=== PATIENT | female | born 1955 | race Caucasian/White ===

== ENCOUNTER → 2017-04-07 | Outpatient (CLI) | payer MEDICAID ==
[2014-04-07 17:49] VITALS: BP 136/81
[2017-04-07 10:46] LABS: CREATININE,URINE 125.86 mg/dL (29-226); MICROALBUMIN,URINE 7.5 mg/L
[2017-04-07 10:48] LABS: BASOPHILS # (AUTO) 0.1 X10^3/uL (0.0-0.1); BASOPHILS % (AUTO) 0.8 % (0.2-1.0); EOSINOPHILS # (AUTO) 0.2 x10^3/uL (0.0-0.2); EOSINOPHILS % (AUTO) 2.7 % (0.9-2.9); HEMATOCRIT 43.2 % (36.0-47.0); HEMOGLOBIN 14.5 g/dL (12.0-16.0); LYMPHOCYTES # (AUTO) 2.3 X10^3/uL (1.3-2.9); MEAN CORPUSCULAR HEMOGLOBIN 29.5 pg (27.0-34.0); MEAN CORPUSCULAR HGB CONC 33.5 g/dL (33.0-35.0); MEAN CORPUSCULAR VOLUME 88.1 fL (80.0-100.0); MEAN PLATELET VOLUME 9.5 fL (7.4-11.0); MONOCYTES # (AUTO) 0.6 x10^3/uL (0.3-0.8); MONOCYTES % (AUTO) 6.3 % (0.0-13.0); NEUTROPHILS # (AUTO) 5.7 x10^3/uL (2.2-4.8); NEUTROPHILS % (AUTO) 64.2 % (42.0-75.0); PLATELET COUNT 137 X10^3/uL (150.0-450.0); RED CELL DISTRIBUTION WIDTH 12.8 % (11.6-16.5); WHITE BLOOD COUNT 8.8 X10^3/uL (3.6-10.0)
[2017-04-07 10:50] LABS: HEMOGLOBIN A1C 10.2 % (4.5-6.2)
[2017-04-07 11:20] LABS: ERYTHROCYTE SEDIMENTATION RATE 15 MM/HOUR (0-20)
[2017-04-07 11:45] LABS: ALANINE AMINOTRANSFERASE 27 Units/L (12-78); ALBUMIN 3.3 g/dL (3.4-5.0); ALKALINE PHOSPHATASE 75 Units/L (46-116); ASPARTATE AMINO TRANSFERASE 17 Units/L (15-37); BLOOD UREA NITROGEN 13 mg/dL (7-18); CHLORIDE 103 mmol/L (98-107); CHOL/HDL RATIO 6.8 (0.0-5.0); CHOLESTEROL 149 mg/dL (0-200); COR CA(FOR HYPOALB) 9.6 mg/dL (8.5-10.1); COR NA(FOR HYPERGLY) 142 mmol/L (136-145); GLUCOSE 226 mg/dL (65-99); HDL CHOLESTEROL 22 mg/dL (40-60); SODIUM 139 mmol/L (136-145); TOTAL PROTEIN 7.8 g/dL (6.4-8.2); TRIGLYCERIDES 143 mg/dL (0-150); eGFR BLACK RACES > 60 (>60); eGFR NON BLACK RACES > 60 (>60)
--- NOTE | 2017-04-07 12:01 | RAD ---
HISTORY: Left knee pain. Complete two view series of the left knee joint. Findings: There is no evidence for acute fracture or dislocation. The medial and lateral tibiofemor al compartments demonstrate moderate to severe joint space narrowing and osteophyte formation; most severe in the medial knee compartment. The findings are compatible with moderate to severe degenerat chaim joint disease. The lateral radiograph demonstrates a very small suprapatellar joint effusion. Patellofemoral compartment also shows moderate to severe DJD with chondromalacia patella. There is m ild soft tissue swelling about the knee joint without underlying bony injury or fracture seen. No ag gressive / destructive lytic bony lesions are seen. IMPRESSION: Moderate to severe left knee joint tricompartmental osteoarthritis, most severe medially, with advan john central chondromalacia patella. No evidence for an acute fracture, subluxation, or lytic bony le luis fernando. No significant knee joint effusion is observed. Reported By:
--- NOTE | 2017-04-07 12:02 | RAD ---
HISTORY: Right knee pain. Complete two view series of the right knee joint. Findings: There is no evidence for acute fracture or dislocation. The medial and lateral tibiofemor al compartments demonstrate moderate to severe joint space narrowing and osteophyte formation; most severe in the medial knee compartment. The findings are compatible with moderate to severe degenerat chaim joint disease. The lateral radiograph demonstrates a small right knee suprapatellar joint effus ion. Patellofemoral compartment also shows moderate to severe DJD with chondromalacia patella. Ther e is mild soft tissue swelling about the knee joint without underlying bony injury or fracture seen. No aggressive / destructive lytic bony lesions are seen. IMPRESSION: Moderate to severe right knee joint tricompartmental osteoarthritis, most severe medially, with adva nced central chondromalacia patella. No evidence for an acute fracture, subluxation, or lytic bony l esion. Small right knee joint effusion is also observed. Reported By:
--- NOTE | 2017-04-07 12:22 | RAD ---
HISTORY: Lumbosacral spondylosis, back pain Study: Lumbar spine AP and lateral Comparison: None Findings: The alignment is normal. The vertebral bodies are of average height. Degenerative disc disease is pr esent at L1-2 and L5-S1. The pedicles are intact. The SI joints are normal. Moderate spondylosis is present. IMPRESSION: Degenerative disc disease L1-2, L5-S1. Moderate spondylosis Reported By:
== END | disposition home or self-care (01) ==
LOC: LAB 09:46
PROVIDERS: ATTEND Nurse Practitioner Family
DX: I10 Essential (primary) hypertension (principal); E11.8 Type 2 diabetes mellitus with unspecified complications; E78.4 Other hyperlipidemia; M15.0 Primary generalized (osteo)arthritis; M43.07 Spondylolysis, lumbosacral region; M51.36 Other intervertebral disc degeneration, lumbar region; M51.37 Other intervertebral disc degeneration, lumbosacral region
CPT/HCPCS: 36415; 72100; 73560; 80053; 80061; 82043; 83036; 85025; 85652; 86140

== ENCOUNTER → 2017-07-01 | Outpatient (CLI) | payer MEDICAID ==
[2014-04-07 17:49] VITALS: BP 136/81
[2017-07-01 12:55] LABS: BASOPHILS % (AUTO) 0.5 % (0.2-1.0); EOSINOPHILS # (AUTO) 0.3 x10^3/uL (0.0-0.2); EOSINOPHILS % (AUTO) 3.6 % (0.9-2.9); HEMATOCRIT 40.4 % (36.0-47.0); LYMPHOCYTES # (AUTO) 2.3 X10^3/uL (1.3-2.9); LYMPHOCYTES % (AUTO) 25.6 % (21.0-51.0); MEAN CORPUSCULAR HEMOGLOBIN 30.7 pg (27.0-34.0); MEAN CORPUSCULAR HGB CONC 34.6 g/dL (33.0-35.0); MEAN CORPUSCULAR VOLUME 88.9 fL (80.0-100.0); MEAN PLATELET VOLUME 9.5 fL (7.4-11.0); MONOCYTES # (AUTO) 0.8 x10^3/uL (0.3-0.8); NEUTROPHILS # (AUTO) 5.5 x10^3/uL (2.2-4.8); NEUTROPHILS % (AUTO) 61.3 % (42.0-75.0); PLATELET COUNT 132 X10^3/uL (150.0-450.0); RED BLOOD COUNT 4.55 X10^6/uL (3.5-5.4); RED CELL DISTRIBUTION WIDTH 13.2 % (11.6-16.5); WHITE BLOOD COUNT 8.9 X10^3/uL (3.6-10.0)
[2017-07-01 13:07] LABS: CALCIUM 8.2 mg/dL (8.5-10.1); CHLORIDE 103 mmol/L (98-107); SODIUM 138 mmol/L (136-145); TOTAL PROTEIN 7.7 g/dL (6.4-8.2); eGFR BLACK RACES > 60 (>60); eGFR NON BLACK RACES > 60 (>60)
[2017-07-01 13:08] LABS: CREATININE,URINE 114.22 mg/dL (29-226); MICROALBUMIN,URINE 9.7 mg/L
[2017-07-01 13:29] LABS: ALANINE AMINOTRANSFERASE 26 Units/L (12-78); ALBUMIN 3.1 g/dL (3.4-5.0); ALKALINE PHOSPHATASE 74 Units/L (46-116); BLOOD UREA NITROGEN 17 mg/dL (7-18); CARBON DIOXIDE 28.9 mmol/L (21-32); COR CA(FOR HYPOALB) 8.9 mg/dL (8.5-10.1); COR NA(FOR HYPERGLY) 141 mmol/L (136-145); CREATININE 0.85 mg/dL (0.55-1.02); GLUCOSE 238 mg/dL (65-99)
[2017-07-01 13:30] LABS: ASPARTATE AMINO TRANSFERASE 26 Units/L (15-37)
[2017-07-01 13:36] LABS: ERYTHROCYTE SEDIMENTATION RATE 11 MM/HOUR (0-20)
[2017-07-01 13:59] LABS: RHEUMATOID FACTOR NEGATIVE (NEGATIVE)
--- NOTE | 2017-07-01 14:06 | RAD ---
HISTORY: Bilateral hip pain, nontraumatic Study: Bilateral hips two views each, AP pelvis Comparison: None Findings: The pelvic bones and SI joints are intact. The right hip joint is intact. No erosions are noted. No fracture, lytic, or blastic lesion is identified. There is mild degenerative joint space narrowing i n the left hip. No joint erosions are noted. No fracture, lytic, or blastic lesion is identified. IMPRESSION: Normal right hip Mild degenerative joint space narrowing left hip Reported By:
--- NOTE | 2017-07-01 14:08 | RAD ---
HISTORY: Elbow pain, nontraumatic Study: Right elbow three view Comparison: None Findings: No acute cortical disruption or dislocation is identified. No significant joint space effusion can be seen. The radial head is unremarkable in its appearance. IMPRESSION: 1. Negative exam. Reported By:
--- NOTE | 2017-07-01 14:09 | RAD ---
HISTORY: Left elbow pain, nontraumatic Study: Left elbow three view Comparison: None Findings: No acute cortical disruption or dislocation is identified. No significant joint space effusion can be seen. The radial head is unremarkable in its appearance. IMPRESSION: 1. Negative exam. Reported By:
[2017-07-05 07:40] LABS: ANTI-NUCLEAR ANTIBODY TEST Detected (None Detected)
[2017-07-06 07:27] LABS: ANA PATTERN SPECKLED PATTERN
== END ==
LOC: LAB 12:08
PROVIDERS: ATTEND Nurse Practitioner Family
DX: E11.65 Type 2 diabetes mellitus with hyperglycemia (principal); I10 Essential (primary) hypertension; M16.0 Bilateral primary osteoarthritis of hip; M25.521 Pain in right elbow; M25.522 Pain in left elbow
CPT/HCPCS: 36415; 73070; 73521; 80053; 82043; 83036; 85025; 85652; 86140; 86200; 86308; 86430

== ENCOUNTER → 2017-07-08 | Outpatient (CLI) | payer MEDICAID ==
[2014-04-07 17:49] VITALS: BP 136/81
--- NOTE | 2017-07-08 12:09 | RAD ---
HISTORY: Shoulder pain. Study: Complete series of the right shoulder. Comparison: None. Findings: The clavicle and AC joint are intact. There is moderate AC and shoulder joint osteoarthritis observe d. No Hill-Sachs deformity or bony Bankhart lesion is seen. There is no lytic bony lesion or bone fo rming lesions observed. No aggressive periosteal reaction is evident. No acute fracture, subluxation or dislocation can be identified. The visualized portions of the scapula are unremarkable. In add ition, the visualized portions of the upper lung mendez are clear. IMPRESSION: Moderate right AC and shoulder joint osteoarthritis. Otherwise, negative shoulder joint examination. Reported By:
--- NOTE | 2017-07-08 13:43 | RAD ---
History: Neck pain. Study: AP and lateral cervical spine Comparison: None Findings: There is normal alignment without fracture or disk space narrowing. C7 is obscured by shou lders in the lateral view. There are moderate osteophytes diffusely about the cervical facet joints. There is no significant uncovertebral joint spurring. Impression: Diffuse facet joint osteoarthritis Reported By:
== END | disposition home or self-care (01) | DRG 552 ==
LOC: RAD 11:27
PROVIDERS: ATTEND Nurse Practitioner Family
DX: M54.2 Cervicalgia (principal); M25.551 Pain in right hip; M19.011 Primary osteoarthritis, right shoulder; M47.892 Other spondylosis, cervical region
CPT/HCPCS: 72040; 73030

== ENCOUNTER → 2017-07-12 | Outpatient (CLI) | payer MEDICAID ==
[2014-04-07 17:49] VITALS: BP 136/81
--- NOTE | 2017-07-12 10:02 | MRI ---
HISTORY: Lumbosacral spondylosis, low back pain, radiculopathy Study: MRI lumbar spine Comparison: March 06, 2015 Technique: Multiplanar multi-sequence MRI of the lumbar spine was obtained. Sagittal T1, sagittal T 2, and stir weighted images, axial T1, and axial T2 images were obtained. Findings: The lumbar spine demonstrates normal alignment with the expected signal characteristics of the bone marrow. The conus of the cord terminates normally. T12 -- L1: No evidence for compressive disc disease. The neural foramina are patent. Mild bilateral facet arthropathy is present. L1 -- L2: Mild circumferential disk bulging contributes along with bilateral facet arthropathy to mi ld lateral recess narrowing bilaterally. L2 -- L3: Mild concentric disc bulging contributes along with bilateral facet arthropathy and pedicu lar shortening to mild lateral recess narrowing bilaterally. L3 -- L4: Mild circumferential disk bulging contributes along with bilateral facet arthropathy and p edicular shortening to lateral recess and foraminal narrowing bilaterally. L4 -- L5: Broad-based and circumferential disk bulging contributes along with ligamentous hypertroph y, pedicular shortening and facet arthropathy to a significant spinal stenosis with lateral recess a nd foraminal narrowing on the left and mild lateral recess narrowing on the right. L5 -- S1: Mild broad-based disk bulging causes minimal thecal sac effacement. However, the neural fo ramina are patent. In the joints are within normal limits. IMPRESSION: As above Reported By:
== END ==
LOC: RAD 08:37
PROVIDERS: ATTEND Nurse Practitioner Family
DX: M43.07 Spondylolysis, lumbosacral region (principal)
CPT/HCPCS: 72148

== ENCOUNTER → 2017-10-07 | Outpatient (CLI) | payer MEDICAID ==
[2014-04-07 17:49] VITALS: BP 136/81
[2017-10-07 09:43] LABS: BASOPHILS # (AUTO) 0.1 X10^3/uL (0.0-0.1); BASOPHILS % (AUTO) 0.7 % (0.2-1.0); EOSINOPHILS # (AUTO) 0.3 x10^3/uL (0.0-0.2); EOSINOPHILS % (AUTO) 3.3 % (0.9-2.9); HEMATOCRIT 40.7 % (36.0-47.0); HEMOGLOBIN 13.8 g/dL (12.0-16.0); LYMPHOCYTES # (AUTO) 2.6 X10^3/uL (1.3-2.9); LYMPHOCYTES % (AUTO) 27.6 % (21.0-51.0); MEAN CORPUSCULAR HEMOGLOBIN 31.1 pg (27.0-34.0); MEAN CORPUSCULAR HGB CONC 33.9 g/dL (33.0-35.0); MEAN CORPUSCULAR VOLUME 91.7 fL (80.0-100.0); MEAN PLATELET VOLUME 8.9 fL (7.4-11.0); MONOCYTES # (AUTO) 0.6 x10^3/uL (0.3-0.8); MONOCYTES % (AUTO) 6.4 % (0.0-13.0); NEUTROPHILS # (AUTO) 5.9 x10^3/uL (2.2-4.8); PLATELET COUNT 146 X10^3/uL (150.0-450.0); RED BLOOD COUNT 4.44 X10^6/uL (3.5-5.4); RED CELL DISTRIBUTION WIDTH 13.5 % (11.6-16.5); WHITE BLOOD COUNT 9.6 X10^3/uL (3.6-10.0)
[2017-10-07 09:49] LABS: CREATININE,URINE 340.45 mg/dL (29-226); MICROALBUMIN,URINE 16.2 mg/L
[2017-10-07 10:02] LABS: ALANINE AMINOTRANSFERASE 18 Units/L (12-78); ALKALINE PHOSPHATASE 65 Units/L (46-116); ASPARTATE AMINO TRANSFERASE 20 Units/L (15-37); BLOOD UREA NITROGEN 16 mg/dL (7-18); CARBON DIOXIDE 32.6 mmol/L (21-32); CHLORIDE 101 mmol/L (98-107); CHOL/HDL RATIO 11.1 (0.0-5.0); CHOLESTEROL 144 mg/dL (0-200); COR CA(FOR HYPOALB) 9.8 mg/dL (8.5-10.1); COR NA(FOR HYPERGLY) 140 mmol/L (136-145); CREATININE 0.78 mg/dL (0.55-1.02); HDL CHOLESTEROL 13 mg/dL (40-60); SODIUM 138 mmol/L (136-145); TOTAL PROTEIN 7.2 g/dL (6.4-8.2); TRIGLYCERIDES 168 mg/dL (0-150); eGFR BLACK RACES > 60 (>60); eGFR NON BLACK RACES > 60 (>60)
--- NOTE | 2017-10-07 10:06 | RAD ---
Examination: Right shoulder, three views History: Pain, history of previous fall Comparison reference: 07/08/2017 Findings: There is no evidence for fracture or dislocation, periarticular calcification or bone destr uction. There is slight degenerative narrowing of the AC and glenohumeral joints. Impression: No acute process identified. Mild osteoarthritis. Reported By:
[2017-10-07 10:19] LABS: ERYTHROCYTE SEDIMENTATION RATE 20 MM/HOUR (0-20)
== END ==
LOC: LAB 09:16
PROVIDERS: ATTEND Nurse Practitioner Family
DX: I10 Essential (primary) hypertension (principal); E11.9 Type 2 diabetes mellitus without complications; E78.4 Other hyperlipidemia; M15.0 Primary generalized (osteo)arthritis; M25.511 Pain in right shoulder
CPT/HCPCS: 36415; 73030; 80053; 80061; 82043; 83036; 85025; 85652; 86140

== ENCOUNTER → 2017-11-02 | Outpatient (CLI) | payer MEDICAID ==
[2014-04-07 17:49] VITALS: BP 136/81
--- NOTE | 2017-11-03 17:12 | MG ---
Examination: Bilateral screening mammogram. Clinical history: Routine screening. Technique: Digital CC and MLO views of both breasts were obtained. Computer aided detection analysis was performed and used during the interpretation. Comparison: 10/26/2016, 07/13/2013. Findings: The breasts are composed of scattered fibroglandular densities. Benign-appearing calcifications and v ascular calcifications are noted in the breasts bilaterally. No suspicious mass, area of architectural distortion or suspicious cluster of microcalcifications is noted. Impression: 1. No mammographic evidence of malignancy. BI-RADS category 2-benign findings. Recommend routine annual screening mammogram. Diagnostic CAD was utilized and reviewed. * 0 (ZERO) - ASSESSMENT INCOMPLETE; ADDITIONAL IMAGING IS NEEDED. * 0C - ASSESSMENT INCOMPLETE, NEEDS ADDITIONAL IMAGING EVALUATION AND/OR PRIOR MAMMOGRAMS FOR COMPARI SON. * 1/1 (ONE) - NEGATIVE. * 2/II (TWO) - BENIGN FINDINGS. * 3/III (THREE) - PROBABLY BENIGN FINDING; SHORT INTERVAL FOLLOW-UP SUGGESTED. * 4/IV (FOUR) - SUSPICIOUS ABNORMALITY; BIOPSY SHOULD BE CONSIDERED. * 5/V - HIGHLY SUSPICIOUS OF MALIGNANCY; BIOPSY SHOULD BE PERFORMED. * 6/IV - KNOWN BIOPSY PROVEN MALIGNANCY-APPROPRIATE ACTION SHOULD BE TAKEN. A NEGATIVE X-RAY REPORT SHOULD NOT DELAY BIOPSY IF A DOMINANT OR CLINICALLY SUSPICIOUS MASS IS PRESENT; 4 TO 8 PERCENT OF CANCERS ARE NOT IDENTIFIED BY X-RAY. A NEGATIVE REPORT MAY REINFORCE THE CLINICAL IMPRESSION. ADENOSIS AND DENSE BREASTS MAY OBSCURE AN UNDERLYING NEOPLASM. Reported By:
--- NOTE | 2017-11-04 14:21 | MRI ---
MRI right shoulder without contrast Indication: Right shoulder pain and stiffness Technique: Multiplanar, multi sequence imaging of the right shoulder without IV contrast administrati on. Findings: Visualization of the anterior most fibers of the supraspinatus tendon is limited given sp ent positioning; however, there is suspected intermediate high-grade bursal surface tear within the a nterior most fibers of the supraspinatus tendon seen on coronal image 6 and sagittal image 5-6. Remai abbey supraspinatus and infraspinatus tendon demonstrates tendinopathy with mild undersurface spurring . There is trace amount subacromial, subdeltoid bursal fluid. No muscle atrophy within the supraspina tus or infraspinatus tendons. The subscapularis tendon demonstrates partial thickness tearing within superior most fibers. The intra-articular portion the long head biceps tendon is not well visualized and possibility of tea r or dislocation is not excluded. There is moderate fluid within the cranial most aspect of the bicip ital groove potentially representing a acute tear or synovitis. The superior labrum demonstrates intermediate signal suggesting degenerative fraying, no acute tear o r paralabral cyst. Imaging of the mid and inferior labrum is suboptimal given patient motion artifact on axial imaging to exclude acute fracture. No large paralabral cyst. Again glenohumeral articular c artilage is also difficult to evaluate given motion artifact however there is no subchondral bone mar row signal abnormality identified within the glenoid or humeral head. AC joint demonstrates moderate synovial an osseous hypertrophic change in joint fluid consistent with osteoarthrosis. There is minim al mass effect on the adjacent rotator cuff. Impression: 1.Limited evaluation of the rotator cuff given patient positioning and motion artifact. 2. Suspected intermediate to high-grade bursal surface tear of the anterior-most fibers of the supras pinatus tendon. The remaining supraspinatus and infraspinatus tendon demonstrates tendinopathy and lo w-grade articular surface fraying. 3. Partial-thickness tear of the superior fibers of the subscapularis tendon. 4. Inability to visualize the intra-articular portion long head biceps tendon potentially represents chronic dislocation or tear with retraction. There is moderate edema within the cranial aspect of the bicipital groove representing synovitis versus sequela of biceps tear. 5. Degenerative fraying of the superior labrum, given limitations of this examination no definite acu te or displaced labral tear. No paralabral cyst. 6. Small amount subacromial, subdeltoid bursal fluid consistent with bursitis. 7. Moderate AC joint osteoarthrosis with mild indentation adjacent rotator cuff , correlation for sig ns of impingement is needed. Reported By:
== END | disposition home or self-care (01) ==
LOC: RAD 15:32
PROVIDERS: ATTEND Nurse Practitioner Family
DX: Z12.31 Encounter for screening mammogram for malignant neoplasm of breast (principal); M25.511 Pain in right shoulder; S46.811A Strain of other muscles, fascia and tendons at shoulder and upper arm level, right arm, initial encounter; X58.XXXA Exposure to other specified factors, initial encounter
CPT/HCPCS: 73221; 77067

== ENCOUNTER → 2017-12-29 | Outpatient (CLI) | payer MEDICAID ==
[2014-04-07 17:49] VITALS: BP 136/81
--- NOTE | 2017-12-29 15:19 | RAD ---
HISTORY: Left knee pain. Complete three-view series of the left knee joint. Findings: Examination of the knee joint demonstrate no evidence for acute fracture or dislocation. The medial and lateral tibiofemoral compartments demonstrate moderate to severe joint space narrowing and osteop hyte formation; most severe in the medial knee compartment. Marginal patellar and femorotibial osteop hytosis is seen. The findings are compatible with moderate to severe degenerative joint disease. The lateral radiograph demonstrates a very small suprapatellar joint effusion. Patellofemoral compartme nt also shows moderate to severe DJD with chondromalacia patella. There is mild soft tissue swelling about the knee joint without underlying bony injury or fracture seen. No aggressive / destructive lyt ic bony lesions are seen. IMPRESSION: Moderate to severe left knee joint tricompartmental osteoarthritis, most severe medially, with a smal l knee joint effusion and x-ray findings suggesting advanced chondromalacia patella. No evidence for an acute fracture, subluxation, or lytic bony lesion. Reported By:
--- NOTE | 2017-12-29 15:45 | RAD ---
HISTORY: Left shoulder pain. Study: Three views of the left shoulder. Comparison: None. Findings: Mild osteoarthritis of the left acromioclavicular joint. Subchondral cystic changes are seen at the l eft humeral head. The visualized lung is clear. No acute cortical disruption or dislocation can be id entified. No significant soft tissue swelling or injury can be seen. IMPRESSION: No acute osseous abnormality. Reported By:
== END | disposition home or self-care (01) | DRG 556 ==
LOC: RAD 14:18
PROVIDERS: ATTEND Nurse Practitioner Family
DX: M25.562 Pain in left knee (principal); M25.511 Pain in right shoulder; M25.512 Pain in left shoulder; M17.12 Unilateral primary osteoarthritis, left knee
CPT/HCPCS: 73030; 73560

== ENCOUNTER → 2018-01-06 | Outpatient (CLI) | payer MEDICAID ==
[2014-04-07 17:49] VITALS: BP 136/81
[2018-01-06 10:19] LABS: CREATININE,URINE 170.3 mg/dL (29-226); MICROALBUMIN,URINE 9.5 mg/L
[2018-01-06 10:23] LABS: BASOPHILS # (AUTO) 0.1 X10^3/uL (0.0-0.1); BASOPHILS % (AUTO) 1.5 % (0.2-1.0); EOSINOPHILS # (AUTO) 0.3 x10^3/uL (0.0-0.2); EOSINOPHILS % (AUTO) 3.5 % (0.9-2.9); LYMPHOCYTES % (AUTO) 21.2 % (21.0-51.0); MEAN CORPUSCULAR HEMOGLOBIN 30.4 pg (27.0-34.0); MEAN CORPUSCULAR HGB CONC 34.2 g/dL (33.0-35.0); MEAN PLATELET VOLUME 9.5 fL (7.4-11.0); MONOCYTES # (AUTO) 0.7 x10^3/uL (0.3-0.8); MONOCYTES % (AUTO) 7.8 % (0.0-13.0); NEUTROPHILS # (AUTO) 6.3 x10^3/uL (2.2-4.8); PLATELET COUNT 123 X10^3/uL (150.0-450.0); RED BLOOD COUNT 4.61 X10^6/uL (3.5-5.4); RED CELL DISTRIBUTION WIDTH 13.9 % (11.6-16.5); WHITE BLOOD COUNT 9.6 X10^3/uL (3.6-10.0)
[2018-01-06 10:32] LABS: ALANINE AMINOTRANSFERASE 18 Units/L (12-78); ALKALINE PHOSPHATASE 84 Units/L (46-116); ASPARTATE AMINO TRANSFERASE 9 Units/L (15-37); BLOOD UREA NITROGEN 14 mg/dL (7-18); CALCIUM 8.5 mg/dL (8.5-10.1); CARBON DIOXIDE 30.9 mmol/L (21-32); CHLORIDE 101 mmol/L (98-107); CHOL/HDL RATIO 22.2 (0.0-5.0); CHOLESTEROL 111 mg/dL (0-200); COR CA(FOR HYPOALB) 9.3 mg/dL (8.5-10.1); COR NA(FOR HYPERGLY) 140 mmol/L (136-145); HDL CHOLESTEROL 5 mg/dL (40-60); HEMOGLOBIN A1C 8.4 %; SODIUM 137 mmol/L (136-145); TOTAL PROTEIN 7.3 g/dL (6.4-8.2); TRIGLYCERIDES 316 mg/dL (0-150); eGFR BLACK RACES > 60 (>60); eGFR NON BLACK RACES > 60 (>60)
[2018-01-06 11:13] LABS: ERYTHROCYTE SEDIMENTATION RATE 14 MM/HOUR (0-20)
== END ==
LOC: LAB 09:42
PROVIDERS: ATTEND Nurse Practitioner Family
DX: E11.9 Type 2 diabetes mellitus without complications (principal); M25.562 Pain in left knee
CPT/HCPCS: 36415; 80053; 80061; 82043; 83036; 85025; 85652; 86140

== ENCOUNTER → 2018-01-26 | Outpatient (CLI) | payer MEDICAID ==
[2014-04-07 17:49] VITALS: BP 136/81
--- NOTE | 2018-01-27 07:09 | MRI ---
MRI left knee without contrast. Indication: Knee pain fall Technique: Multiplanar, multi sequence imaging of the left knee without IV contrast administration. Findings: The extensor mechanism is intact. The patellofemoral compartment demonstrates high-grade li cuca focal full-thickness fissuring of the lateral patellar articular cartilage with subchondral bone marrow edema. There is surface osteophytes within the medial and lateral patellofemoral compartments as well. Medial and lateral retinacular complex are intact. The patellar remains well positioned wit hin the femoral trochlea sulcus. Moderate-sized joint effusion and synovitis. Addition there is a mod erate-sized multilobulated popliteal fossa cyst which is heterogeneous and signal. Popliteus muscle a nd tendon are intact. The pes anserine tendons are also intact. The proximal tib-fib joint demonstrat es moderate degenerative change with a Choose ganglion cyst arising from the anterior aspect of the j oint space. The medial femorotibial compartment demonstrates high-grade chondral thinning with focal areas of ful l-thickness cartilage loss with subcortical cyst formation and moderate size osteophyte. There is als o a large osteophyte within the posterior aspect of the medial femoral condyle with subchondral bone marrow edema. The lateral femorotibial compartment demonstrates moderate chondral thinning without lenz bchondral bone marrow signal abnormality. There are small surface osteophytes. The the ACL demonstrates mucoid degeneration however there is no high-grade or full-thickness tear. T he PCL demonstrates mucoid degeneration proximally without full-thickness or high-grade tear. Chronic grade 1 sprain of the superficial MCL likely sequela of chronic meniscal pathology. The fibular tay ateral ligament is normal. Iliotibial band and biceps femoris are intact. The medial meniscus demonst rates displaced posterior root tear seen on coronal image 24 with horizontal oriented tear extending into the posterior horn and meniscal body seen on coronal image 22. The anterior horn and root are fr ayed however there is no high-grade or full-thickness meniscal tear. The lateral meniscus demonstrate s mucoid degeneration throughout with partial thickness tearing at the posterior root attachment seen on coronal image 25. Impression: 1.Advanced medial with moderate lateral femorotibial, patellofemoral and proximal tib-fib osteoarthro sis. 2. Moderately displaced medial meniscal posterior root tear with extension of degenerative tearing in a horizontal orientation into the posterior horn and meniscal body with extrusion of the meniscal nena dy into the medial gutter. 3. Partial-thickness tear of the undersurface of the posterior root of the lateral meniscus. 4. Moderate-sized joint effusion and multilobulated popliteal fossa cyst with synovitis. 5. Mucoid degeneration and or chronic sprains of the proximal PCL, ACL and the superficial MCL. No ac giuseppe or high-grade cruciate or collateral ligamentous tear. Reported By:
--- NOTE | 2018-01-27 08:09 | MRI ---
MRI left shoulder without contrast Indication: Left shoulder pain Technique: Multiplanar, multi sequence imaging of the left shoulder without IV contrast administratio n. Findings: There is intermediate to high-grade articular surface tearing of the entire distal supraspi natus tendon most severe on coronal image 9. The tear extends into the posterior aspect of the supras pinatus tendon, conjoined tendon and infraspinatus tendon at the footplate. The infraspinatus tendon also demonstrates intermediate grade articular surface tearing of the distal tendon. Remaining distal supraspinatus tendon demonstrates fairly severe tendinosis. There is no full-thickness tear or retra ction of the infraspinatus or supraspinatus tendon. No muscle belly atrophy. The subscapularis tendon demonstrates high-grade partial-thickness tearing of the superior half of the distal tendon. There i s dislocation of the biceps tendon into the medial aspect of the joint seen best on coronal image 7 a long with split thickness tear of the intra-articular long head biceps tendon. There is tear extending from the split thickness intra-articular long head biceps tendon into the bic eps labral anchor. There is truncation and tear of the anterior and posterior superior labrum with pr opagation of tear to involve the anterior and posterior labrum. The inferior labrum does not appear t o be definitely torn. Glenohumeral joint demonstrates moderate chondral thinning without subchondral bone marrow signal abnormality. There is a small joint effusion. The AC joint demonstrates advanced o steoarthrosis along with downward sloping of the distal acromion causing mass effect on the distal lenz praspinatus tendon. Moderate bone marrow edema is noted within the distal acromion and clavicle. No axillary adenopathy. Impression: 1. Intermediate to high-grade approximating 50-75% thickness articular surface tearing of the distal supraspinatus and infraspinatus tendons with fairly severe tendinosis of the remaining intact distal supraspinatus tendon. No full-thickness tear or muscle belly atrophy. 2. High-grade partial-thickness tearing of the superior distal subscapularis tendon. 3. Medial dislocation of the intra-articular long head biceps tendon with chronic, split thickness te ar of the intra-articular long head biceps tendon extending into the biceps labral anchor. 4. Essentially a 270 degree tear of the superior anterior and posterior labrum. No definite tear prop agation is identified within the inferior glenoid labrum; however degenerative fraying of the inferio r labrum is likely. 5. Moderate glenohumeral and advanced AC joint osteoarthrosis, degenerative change and anterior downs loping of the distal acromion causes mass effect on the distal supraspinatus tendon, clinical correla tion for signs of internal impingement is needed. 6. Small amount of subacromial, subdeltoid bursal fluid is most consistent with bursitis. Reported By:
== END | disposition home or self-care (01) ==
LOC: RAD 13:26
PROVIDERS: ATTEND Nurse Practitioner Family
DX: M25.512 Pain in left shoulder (principal); M25.562 Pain in left knee; S83.282A Other tear of lateral meniscus, current injury, left knee, initial encounter; S83.242A Other tear of medial meniscus, current injury, left knee, initial encounter; S46.812A Strain of other muscles, fascia and tendons at shoulder and upper arm level, left arm, initial encounter; X58.XXXA Exposure to other specified factors, initial encounter; M71.22 Synovial cyst of popliteal space [Baker], left knee; M25.462 Effusion, left knee; M17.12 Unilateral primary osteoarthritis, left knee
CPT/HCPCS: 73221; 73721

== ENCOUNTER → 2018-03-22 | Outpatient (CLI) | payer MEDICAID ==
[2014-04-07 17:49] VITALS: BP 136/81
--- NOTE | 2018-03-23 06:37 | RAD ---
HISTORY: Right hip pain, nontraumatic Study: Right hip AP, frog-leg, AP pelvis Comparison: None Findings: The pelvic bones and SI joints are intact. The right hip joint is intact. No joint erosions are noted . No fracture, lytic, or blastic lesion is identified. IMPRESSION: No significant abnormality right hip joint Reported By:
== END ==
LOC: RAD 10:55
PROVIDERS: ATTEND Nurse Practitioner Family
DX: M25.551 Pain in right hip (principal)
CPT/HCPCS: 73501

== ENCOUNTER 2022-10-30 14:14 | Inpatient (IN) ==
[2022-10-30] MEDS ORDERED: ROXICODONE TAB 5 MG PO PRN (19:34)
[2022-10-30] MEDS ORDERED: NovoLIN R (or HumuLIN R) SC PRN (19:34)
[2022-10-30 19:58] LABS: BASOPHILS # (AUTO) 0.1 X10^3/uL (0.0-0.1); BASOPHILS % (AUTO) 0.9 % (0.2-1.0); EOSINOPHILS # (AUTO) 0.5 x10^3/uL (0.0-0.2); EOSINOPHILS % (AUTO) 4.6 % (0.9-2.9); HEMATOCRIT 34.6 % (36.0-47.0); HEMOGLOBIN 11.7 g/dL (12.0-16.0); LYMPHOCYTES # (AUTO) 2.9 X10^3/uL (1.3-2.9); LYMPHOCYTES % (AUTO) 23.9 % (21.0-51.0); MEAN CORPUSCULAR HEMOGLOBIN 29.5 pg (27.0-34.0); MEAN CORPUSCULAR HGB CONC 33.7 g/dL (33.0-35.0); MEAN CORPUSCULAR VOLUME 87.6 fL (80.0-100.0); MEAN PLATELET VOLUME 7.2 fL (7.4-11.0); MONOCYTES # (AUTO) 0.8 x10^3/uL (0.3-0.8); NEUTROPHILS # (AUTO) 7.7 x10^3/uL (2.2-4.8); NEUTROPHILS % (AUTO) 63.6 % (42.0-75.0); RED BLOOD COUNT 3.95 X10^6/uL (3.5-5.4); RED CELL DISTRIBUTION WIDTH 13.3 % (11.6-16.5)
[2022-10-30] MEDS ORDERED: SNACK - Diabetic Appropriate PO SCH (20:00)
[2022-10-30 20:09] LABS: ALANINE AMINOTRANSFERASE 31 Units/L (12-78); ALBUMIN 2.8 g/dL (3.4-5.0); ALKALINE PHOSPHATASE 133 Units/L (46-116); ASPARTATE AMINO TRANSFERASE 22 Units/L (15-37); BLOOD UREA NITROGEN 14 mg/dL (7-18); CARBON DIOXIDE 33.2 mmol/L (21-32); CHLORIDE 97 mmol/L (98-107); COR NA(FOR HYPERGLY) 134 mmol/L (136-145); CREATININE 0.81 mg/dL (0.55-1.02); SODIUM 134 mmol/L (136-145); TOTAL PROTEIN 6.4 g/dL (6.4-8.2); eGFR NON BLACK RACES > 60 (>60)
[2022-10-30 20:16] LABS: PLATELET MORPHOLOGY COMMENT NORMAL (NORMAL)
[2022-10-30] MEDS ORDERED: LANTUS SC SCH (21:00)
[2022-10-30] MEDS: KLONOPIN TAB 0.5 MG PO SCH (22:38)
[2022-10-30] MEDS: PRAVACHOL PO SCH (22:39)
[2022-10-30] MEDS: SINGULAIR TAB 10 MG PO SCH (22:39)
[2022-10-30] MEDS: IMODIUM CAP 2 MG PO SCH (22:39)
[2022-10-30] MEDS: NYSTATIN CREAM TOP SCH (22:40)
[2022-10-30 23:15] VITALS: BMI 32.0
[2022-10-31] MEDS: IMODIUM CAP 2 MG PO SCH (05:13)
[2022-10-31] MEDS: NYSTATIN CREAM TOP SCH (05:14)
[2022-10-31 06:14] LABS: BASOPHILS # (AUTO) 0.1 X10^3/uL (0.0-0.1); BASOPHILS % (AUTO) 1.3 % (0.2-1.0); EOSINOPHILS # (AUTO) 0.5 x10^3/uL (0.0-0.2); EOSINOPHILS % (AUTO) 6.4 % (0.9-2.9); HEMATOCRIT 30.2 % (36.0-47.0); HEMOGLOBIN 10.7 g/dL (12.0-16.0); LYMPHOCYTES # (AUTO) 2.2 X10^3/uL (1.3-2.9); LYMPHOCYTES % (AUTO) 25.5 % (21.0-51.0); MEAN CORPUSCULAR HEMOGLOBIN 30.8 pg (27.0-34.0); MEAN CORPUSCULAR HGB CONC 35.4 g/dL (33.0-35.0); MEAN CORPUSCULAR VOLUME 87.1 fL (80.0-100.0); MEAN PLATELET VOLUME 7.6 fL (7.4-11.0); MONOCYTES # (AUTO) 0.7 x10^3/uL (0.3-0.8); MONOCYTES % (AUTO) 8.4 % (0.0-13.0); NEUTROPHILS # (AUTO) 4.9 x10^3/uL (2.2-4.8); NEUTROPHILS % (AUTO) 58.4 % (42.0-75.0); RED BLOOD COUNT 3.47 X10^6/uL (3.5-5.4); WHITE BLOOD COUNT 8.5 X10^3/uL (3.6-10.0)
[2022-10-31 06:24] LABS: ALANINE AMINOTRANSFERASE 25 Units/L (12-78); ALBUMIN 2.4 g/dL (3.4-5.0); ALKALINE PHOSPHATASE 116 Units/L (46-116); ASPARTATE AMINO TRANSFERASE 18 Units/L (15-37); BLOOD UREA NITROGEN 11 mg/dL (7-18); CALCIUM 8.4 mg/dL (8.5-10.1); CARBON DIOXIDE 36.7 mmol/L (21-32); CHLORIDE 105 mmol/L (98-107); COR CA(FOR HYPOALB) 9.7 mg/dL (8.5-10.1); CREATININE 0.71 mg/dL (0.55-1.02); SODIUM 142 mmol/L (136-145); TOTAL PROTEIN 5.7 g/dL (6.4-8.2); eGFR NON BLACK RACES > 60 (>60)
[2022-10-31] MEDS: ZETIA TAB 10 MG PO SCH (08:03)
[2022-10-31] MEDS: PROTONIX TAB 40 MG PO SCH (08:03)
[2022-10-31] MEDS: ZOFRAN TAB 4 MG PO PRN (08:03)
[2022-10-31] MEDS: TRICOR TAB 145 MG PO SCH (08:03)
[2022-10-31] MEDS: CYMBALTA PO SCH (08:03)
[2022-10-31] MEDS: KLONOPIN TAB 0.5 MG PO SCH ×2 (08:04→22:07)
[2022-10-31] MEDS ORDERED: IMODIUM CAP 2 MG PO PRN (09:54)
[2022-10-31] MEDS ORDERED: OMNICEF CAP 300 MG PO SCH (10:00)
[2022-10-31] MEDS ORDERED: VIBRAMYCIN PO SCH (10:00)
[2022-10-31] MEDS ORDERED: PATIENT'S HOME MEDICATION PO SCH ×2 (10:30)
[2022-10-31] MEDS: PATIENT'S HOME MEDICATION PO SCH ×4 (11:40→22:09)
[2022-10-31] MEDS ORDERED: BACTRIM DS TAB PO SCH (12:00)
[2022-10-31] MEDS: NYSTATIN POWDER TOP SCH ×2 (12:54→22:08)
[2022-10-31] MEDS: ROXICODONE TAB 5 MG PO PRN ×2 (15:16→23:36)
[2022-10-31] MEDS: LANTUS SC SCH (21:16)
[2022-10-31] MEDS: PRAVACHOL PO SCH (22:04)
[2022-10-31] MEDS: GLUCOPHAGE XR 24-HR PO SCH (22:04)
[2022-10-31] MEDS: SINGULAIR TAB 10 MG PO SCH (22:05)
[2022-11-01 06:06] LABS: BASOPHILS # (AUTO) 0.1 X10^3/uL (0.0-0.1); BASOPHILS % (AUTO) 1.1 % (0.2-1.0); EOSINOPHILS # (AUTO) 0.6 x10^3/uL (0.0-0.2); EOSINOPHILS % (AUTO) 5.6 % (0.9-2.9); HEMATOCRIT 34.6 % (36.0-47.0); HEMOGLOBIN 11.6 g/dL (12.0-16.0); LYMPHOCYTES # (AUTO) 3.2 X10^3/uL (1.3-2.9); LYMPHOCYTES % (AUTO) 31.4 % (21.0-51.0); MEAN CORPUSCULAR HEMOGLOBIN 29.7 pg (27.0-34.0); MEAN CORPUSCULAR HGB CONC 33.5 g/dL (33.0-35.0); MEAN CORPUSCULAR VOLUME 88.6 fL (80.0-100.0); MEAN PLATELET VOLUME 7.7 fL (7.4-11.0); MONOCYTES # (AUTO) 0.7 x10^3/uL (0.3-0.8); NEUTROPHILS # (AUTO) 5.6 x10^3/uL (2.2-4.8); NEUTROPHILS % (AUTO) 54.9 % (42.0-75.0); RED BLOOD COUNT 3.91 X10^6/uL (3.5-5.4); RED CELL DISTRIBUTION WIDTH 13.3 % (11.6-16.5); WHITE BLOOD COUNT 10.2 X10^3/uL (3.6-10.0)
[2022-11-01 06:25] LABS: ALANINE AMINOTRANSFERASE 27 Units/L (12-78); ALBUMIN 2.6 g/dL (3.4-5.0); ALKALINE PHOSPHATASE 123 Units/L (46-116); ASPARTATE AMINO TRANSFERASE 17 Units/L (15-37); BLOOD UREA NITROGEN 12 mg/dL (7-18); CALCIUM 8.5 mg/dL (8.5-10.1); CARBON DIOXIDE 34.2 mmol/L (21-32); CHLORIDE 104 mmol/L (98-107); COR CA(FOR HYPOALB) 9.6 mg/dL (8.5-10.1); COR NA(FOR HYPERGLY) 141 mmol/L (136-145); CREATININE 0.77 mg/dL (0.55-1.02); SODIUM 141 mmol/L (136-145); TOTAL PROTEIN 6.1 g/dL (6.4-8.2); eGFR NON BLACK RACES > 60 (>60)
[2022-11-01] MEDS: ROXICODONE TAB 5 MG PO PRN ×2 (06:51→22:05)
[2022-11-01] MEDS: CYMBALTA PO SCH (08:32)
[2022-11-01] MEDS: GLUCOPHAGE XR 24-HR PO SCH ×2 (08:32→21:00)
[2022-11-01] MEDS: TRICOR TAB 145 MG PO SCH (08:32)
[2022-11-01] MEDS: ZETIA TAB 10 MG PO SCH (08:33)
[2022-11-01] MEDS: PROTONIX TAB 40 MG PO SCH (08:33)
[2022-11-01] MEDS: ACTOS PO SCH (08:33)
[2022-11-01] MEDS: PATIENT'S HOME MEDICATION PO SCH ×2 (08:36→08:37)
[2022-11-01] MEDS: NYSTATIN POWDER TOP SCH ×2 (08:37→21:00)
[2022-11-01] MEDS ORDERED: ULTRAM PO PRN (12:24)
[2022-11-01] MEDS: ZOFRAN TAB 4 MG PO PRN (16:17)
[2022-11-01] MEDS: VIBRAMYCIN PO SCH (21:00)
[2022-11-01] MEDS: OMNICEF CAP 300 MG PO SCH (21:00)
[2022-11-01] MEDS: PRAVACHOL PO SCH (21:04)
[2022-11-01] MEDS: KLONOPIN TAB 0.5 MG PO SCH (21:07)
[2022-11-01] MEDS: SINGULAIR TAB 10 MG PO SCH (22:04)
[2022-11-01] MEDS: LANTUS SC SCH (22:10)
[2022-11-02] MEDS: ROXICODONE TAB 5 MG PO PRN ×3 (04:37→18:07)
[2022-11-02] MEDS: ACTOS PO SCH (09:22)
[2022-11-02] MEDS: PROTONIX TAB 40 MG PO SCH (09:22)
[2022-11-02] MEDS: TRICOR TAB 145 MG PO SCH (09:22)
[2022-11-02] MEDS: VIBRAMYCIN PO SCH ×2 (09:22→21:26)
[2022-11-02] MEDS: CYMBALTA PO SCH (09:22)
[2022-11-02] MEDS: ZETIA TAB 10 MG PO SCH (09:22)
[2022-11-02] MEDS: OMNICEF CAP 300 MG PO SCH (09:23)
[2022-11-02] MEDS: GLUCOPHAGE XR 24-HR PO SCH ×2 (09:23→21:25)
[2022-11-02] MEDS: NYSTATIN POWDER TOP SCH ×2 (09:23→21:27)
[2022-11-02] MEDS ORDERED: OMNICEF CAP 300 MG PO SCH (10:00)
[2022-11-02] MEDS ORDERED: PHARMACY CONSULT - VANCOMYCIN XX SCH (11:00)
[2022-11-02] MEDS: VANCOMYCIN IV *PREMIX 1.25 G/250 ML BAG 1.25 G/250 ML PIGGYBACK IV SCH ×2 (13:14→21:26)
[2022-11-02] MEDS: ZOFRAN TAB 4 MG PO PRN (13:19)
[2022-11-02] MEDS: PRAVACHOL PO SCH (21:26)
[2022-11-02] MEDS: KLONOPIN TAB 0.5 MG PO SCH (21:26)
[2022-11-02] MEDS: LANTUS SC SCH (21:35)
[2022-11-02] MEDS: SINGULAIR TAB 10 MG PO SCH (21:38)
[2022-11-03 05:48] LABS: BASOPHILS % (AUTO) 0.5 % (0.2-1.0); EOSINOPHILS # (AUTO) 0.6 x10^3/uL (0.0-0.2); EOSINOPHILS % (AUTO) 6.8 % (0.9-2.9); HEMATOCRIT 34.3 % (36.0-47.0); HEMOGLOBIN 11.6 g/dL (12.0-16.0); LYMPHOCYTES # (AUTO) 2.2 X10^3/uL (1.3-2.9); LYMPHOCYTES % (AUTO) 25.1 % (21.0-51.0); MEAN CORPUSCULAR HEMOGLOBIN 29.6 pg (27.0-34.0); MEAN CORPUSCULAR HGB CONC 33.8 g/dL (33.0-35.0); MEAN CORPUSCULAR VOLUME 87.7 fL (80.0-100.0); MEAN PLATELET VOLUME 7.9 fL (7.4-11.0); MONOCYTES # (AUTO) 0.6 x10^3/uL (0.3-0.8); MONOCYTES % (AUTO) 7.2 % (0.0-13.0); NEUTROPHILS # (AUTO) 5.3 x10^3/uL (2.2-4.8); NEUTROPHILS % (AUTO) 60.4 % (42.0-75.0); RED BLOOD COUNT 3.91 X10^6/uL (3.5-5.4); RED CELL DISTRIBUTION WIDTH 13.9 % (11.6-16.5); WHITE BLOOD COUNT 8.7 X10^3/uL (3.6-10.0)
[2022-11-03 06:14] LABS: ALANINE AMINOTRANSFERASE 17 Units/L (12-78); ALBUMIN 2.5 g/dL (3.4-5.0); ALKALINE PHOSPHATASE 114 Units/L (46-116); ASPARTATE AMINO TRANSFERASE 15 Units/L (15-37); BLOOD UREA NITROGEN 13 mg/dL (7-18); CALCIUM 8.2 mg/dL (8.5-10.1); CARBON DIOXIDE 30.6 mmol/L (21-32); CHLORIDE 104 mmol/L (98-107); COR CA(FOR HYPOALB) 9.4 mg/dL (8.5-10.1); COR NA(FOR HYPERGLY) 140 mmol/L (136-145); CREATININE 0.79 mg/dL (0.55-1.02); SODIUM 139 mmol/L (136-145); TOTAL PROTEIN 5.7 g/dL (6.4-8.2); eGFR NON BLACK RACES > 60 (>60)
[2022-11-03] MEDS: GLUCOPHAGE XR 24-HR PO SCH ×2 (09:22→20:57)
[2022-11-03] MEDS: PROTONIX TAB 40 MG PO SCH (09:23)
[2022-11-03] MEDS: NYSTATIN POWDER TOP SCH ×2 (09:23→20:59)
[2022-11-03] MEDS: VIBRAMYCIN PO SCH ×2 (09:23→20:57)
[2022-11-03] MEDS: TRICOR TAB 145 MG PO SCH (09:23)
[2022-11-03] MEDS: ZETIA TAB 10 MG PO SCH (09:24)
[2022-11-03] MEDS: ROXICODONE TAB 5 MG PO PRN ×3 (09:25→23:56)
[2022-11-03] MEDS: ZOFRAN TAB 4 MG PO PRN (10:27)
[2022-11-03] MEDS: VANCOMYCIN IV *PREMIX 1.25 G/250 ML BAG 1.25 G/250 ML PIGGYBACK IV SCH ×2 (10:28→20:58)
[2022-11-03] MEDS: SINGULAIR TAB 10 MG PO SCH (20:57)
[2022-11-03] MEDS: AMBIEN PO PRN (20:58)
[2022-11-03] MEDS: PRAVACHOL PO SCH (20:58)
[2022-11-04 04:53] LABS: BASOPHILS # (AUTO) 0.1 X10^3/uL (0.0-0.1); BASOPHILS % (AUTO) 0.8 % (0.2-1.0); EOSINOPHILS # (AUTO) 0.5 x10^3/uL (0.0-0.2); EOSINOPHILS % (AUTO) 5.5 % (0.9-2.9); HEMATOCRIT 33.7 % (36.0-47.0); HEMOGLOBIN 11.5 g/dL (12.0-16.0); LYMPHOCYTES # (AUTO) 2.8 X10^3/uL (1.3-2.9); MEAN CORPUSCULAR HEMOGLOBIN 30.2 pg (27.0-34.0); MEAN CORPUSCULAR HGB CONC 34.2 g/dL (33.0-35.0); MEAN CORPUSCULAR VOLUME 88.2 fL (80.0-100.0); MEAN PLATELET VOLUME 8.4 fL (7.4-11.0); MONOCYTES # (AUTO) 0.6 x10^3/uL (0.3-0.8); MONOCYTES % (AUTO) 6.3 % (0.0-13.0); NEUTROPHILS % (AUTO) 56.4 % (42.0-75.0); RED BLOOD COUNT 3.82 X10^6/uL (3.5-5.4); RED CELL DISTRIBUTION WIDTH 14.1 % (11.6-16.5); WHITE BLOOD COUNT 8.9 X10^3/uL (3.6-10.0)
[2022-11-04 05:15] LABS: ALANINE AMINOTRANSFERASE 13 Units/L (12-78); ALBUMIN 2.5 g/dL (3.4-5.0); ALKALINE PHOSPHATASE 109 Units/L (46-116); ASPARTATE AMINO TRANSFERASE 16 Units/L (15-37); BLOOD UREA NITROGEN 15 mg/dL (7-18); CALCIUM 8.3 mg/dL (8.5-10.1); CARBON DIOXIDE 28.5 mmol/L (21-32); CHLORIDE 104 mmol/L (98-107); COR CA(FOR HYPOALB) 9.5 mg/dL (8.5-10.1); CREATININE 0.77 mg/dL (0.55-1.02); SODIUM 139 mmol/L (136-145); TOTAL PROTEIN 5.5 g/dL (6.4-8.2); eGFR NON BLACK RACES > 60 (>60)
[2022-11-04] MEDS: ROXICODONE TAB 5 MG PO PRN ×2 (09:09→18:42)
[2022-11-04] MEDS: GLUCOPHAGE XR 24-HR PO SCH ×2 (09:14→23:12)
[2022-11-04] MEDS: VANCOMYCIN IV *PREMIX 1.25 G/250 ML BAG 1.25 G/250 ML PIGGYBACK IV SCH ×2 (09:14→22:02)
[2022-11-04] MEDS: ZETIA TAB 10 MG PO SCH (09:15)
[2022-11-04] MEDS: CYMBALTA PO SCH (09:15)
[2022-11-04] MEDS: NYSTATIN POWDER TOP SCH ×2 (09:15→22:17)
[2022-11-04] MEDS: ACTOS PO SCH (09:15)
[2022-11-04] MEDS: PROTONIX TAB 40 MG PO SCH (09:15)
[2022-11-04] MEDS: TRICOR TAB 145 MG PO SCH (09:15)
[2022-11-04] MEDS: VIBRAMYCIN PO SCH ×2 (09:15→22:03)
[2022-11-04 09:32] LABS: CREATININE 0.83 mg/dL (0.55-1.02); VANCOMYCIN,TROUGH 14.3 ug/mL (15-20)
[2022-11-04] MEDS: ZOFRAN TAB 4 MG PO PRN (18:41)
[2022-11-04] MEDS ORDERED: COLACE CAP 100 MG PO SCH (21:00)
[2022-11-04] MEDS ORDERED: MILK OF MAGNESIA PO SCH (21:00)
[2022-11-04] MEDS: PRAVACHOL PO SCH (22:03)
[2022-11-04] MEDS: SINGULAIR TAB 10 MG PO SCH (22:04)
[2022-11-04] MEDS: AMBIEN PO PRN (22:11)
[2022-11-05 05:01] LABS: BASOPHILS # (AUTO) 0.1 X10^3/uL (0.0-0.1); BASOPHILS % (AUTO) 1.1 % (0.2-1.0); EOSINOPHILS # (AUTO) 0.5 x10^3/uL (0.0-0.2); EOSINOPHILS % (AUTO) 6.4 % (0.9-2.9); HEMATOCRIT 32.6 % (36.0-47.0); HEMOGLOBIN 11.2 g/dL (12.0-16.0); LYMPHOCYTES # (AUTO) 2.1 X10^3/uL (1.3-2.9); LYMPHOCYTES % (AUTO) 24.7 % (21.0-51.0); MEAN CORPUSCULAR HEMOGLOBIN 30.3 pg (27.0-34.0); MEAN CORPUSCULAR HGB CONC 34.5 g/dL (33.0-35.0); MEAN CORPUSCULAR VOLUME 87.7 fL (80.0-100.0); MEAN PLATELET VOLUME 8.8 fL (7.4-11.0); MONOCYTES # (AUTO) 0.5 x10^3/uL (0.3-0.8); MONOCYTES % (AUTO) 6.2 % (0.0-13.0); NEUTROPHILS # (AUTO) 5.1 x10^3/uL (2.2-4.8); NEUTROPHILS % (AUTO) 61.6 % (42.0-75.0); RED BLOOD COUNT 3.72 X10^6/uL (3.5-5.4); RED CELL DISTRIBUTION WIDTH 14.1 % (11.6-16.5); WHITE BLOOD COUNT 8.3 X10^3/uL (3.6-10.0)
[2022-11-05 05:18] LABS: ALANINE AMINOTRANSFERASE 13 Units/L (12-78); ALBUMIN 2.5 g/dL (3.4-5.0); ALKALINE PHOSPHATASE 106 Units/L (46-116); ASPARTATE AMINO TRANSFERASE 21 Units/L (15-37); BLOOD UREA NITROGEN 15 mg/dL (7-18); CALCIUM 8.2 mg/dL (8.5-10.1); CARBON DIOXIDE 26.4 mmol/L (21-32); CHLORIDE 101 mmol/L (98-107); COR CA(FOR HYPOALB) 9.4 mg/dL (8.5-10.1); COR NA(FOR HYPERGLY) 136 mmol/L (136-145); CREATININE 0.65 mg/dL (0.55-1.02); SODIUM 136 mmol/L (136-145); TOTAL PROTEIN 5.5 g/dL (6.4-8.2); eGFR NON BLACK RACES > 60 (>60)
[2022-11-05] MEDS: VANCOMYCIN IV *PREMIX 1.25 G/250 ML BAG 1.25 G/250 ML PIGGYBACK IV SCH (08:38)
[2022-11-05] MEDS: ACTOS PO SCH ×2 (08:40→08:41)
[2022-11-05] MEDS: ROXICODONE TAB 5 MG PO PRN (08:41)
[2022-11-05] MEDS: CYMBALTA PO SCH (08:41)
[2022-11-05] MEDS: TRICOR TAB 145 MG PO SCH (08:41)
[2022-11-05] MEDS: ZETIA TAB 10 MG PO SCH (08:42)
[2022-11-05] MEDS: VIBRAMYCIN PO SCH (08:42)
[2022-11-05] MEDS: PROTONIX TAB 40 MG PO SCH (08:42)
[2022-11-05] MEDS: NYSTATIN POWDER TOP SCH (09:30)
[2022-11-05 10:44] VITALS: BP 138/74
== END 2022-11-05 11:25 | disposition home health service (06) | DRG 603 ==
LOC: MED/SURG 19:12
PROVIDERS: ADMIT Obstetrics & Gynecology Obstetrics; ATTEND Obstetrics & Gynecology Obstetrics
DX: Z95.1 Presence of aortocoronary bypass graft; R26.89 Other abnormalities of gait and mobility; L02.416 Cutaneous abscess of left lower limb; L03.116 Cellulitis of left lower limb; E11.65 Type 2 diabetes mellitus with hyperglycemia; I10 Essential (primary) hypertension; I25.10 Atherosclerotic heart disease of native coronary artery without angina pectoris